=== PATIENT | female | born 1945 | race Caucasian/White ===

== ENCOUNTER 2018-12-01 20:33 | Emergency (ER) | payer MEDICARE ==
--- NOTE | 2018-12-01 22:19 | ED Physician Chart ---
ED Chief Complaint/HPI - Patient Information Date Seen:: 12/01/18 Time Seen:: 21:15 Chief Complaint:: Dog bite in R middle finger. History of Present Illness:: Pt came in by private auto because she sustained dog bite to her right middle finger at 0700 today while she was trying to give medication to her own dog. Pt cleansed her dog bite area immediately with soap and water. Her dog is up to date with rabies and other immunizations. Last tetanus immunization for the patient is unknown. Allergies:: Allergies Allergy/AdvReac Type Severity Reaction Status Date / Time No Known Allergies Allergy Verified 12/01/18 20:56 Vitals:: Vital Signs - 8 hr 12/01/18 20:45 Temp 98.4 F HR 65 RR 18 BP 144/72 O2 Sat % 94 Historian:: Patient Family MD/PCP:: Dr. Snowden LMP:: Postmenopausal Review:: Nurse's Note Reviewed ED Review of Systems - Review of Systems General/Constitutional: No fever, No chills, No weight loss, No weakness, No loss of appetite Skin: No bruising Head: No headache, No light-headedness Eyes: No loss of vision, No pain, No diplopia ENT: No earache, No nasal drainage, No sore throat Neck: No neck pain, No swelling, No thyromegaly, No stiffness, No mass noted Cardio Vascular: No chest pain Pulmonary: No SOB, No cough, No wheezing GI: No vomiting, No pain G/U: No dysuria, No frequency, No hematuria Vascular Tech: No vaginal discharge, No abnormal vaginal bleed Musculoskeletal: No bone or joint pain Psychiatric: No prior psych history Hematopoietic: No bruising, No lymphadenopathy Allergic/Immuno: No urticaria, No angioedema Neurological: No syncope, No focal symptoms, No weakness, No paresthesia, No headache, No dizziness, No confusion ED Past Medical History - Past Medical History Past Medical History: HTN Family History: Heart disease Social History: Non Smoker, No Alcohol, No Drug Use, , Employed, Other ( lives with her sister.) Employment:: senior network security architect. Surgical History: Hysterectomy (about 12 y/a.), other (L eye surgeries with last one about 5 y/a.) Psychiatricy History: None Medication: Reviewed Family Medical History - Family Member Mother History Unknown: Yes ED Physical Exam - Physical Examination General/Constitutional: Awake, Well-developed, well-nourished (female), Alert, No distress, Non-toxic appearing, Ambulatory Other Gen/Cons comments:: Breathes comfortably, speaks clearly, and interacts appropriately. Head: Atraumatic Eyes: Lids, conjuctiva normal, PERRL, EOMI Skin: Well hydrated, No lymphadenopathy ENMT: External ears, nose nl, Nasal exam nl, Oropharynx nl Neck: Nontender, Full ROM w/o pain, No nuchal rigidity, No mass Respiratory: Nl effort/Exclusion, Clear to Auscultation, No Wheeze/Rhonchi/Rales Cardio Vascular: RRR, No murmur, gallop, rubs GI: No tenderness/rebounding/guarding, No organomegaly, Normal BS's, Nondistended, No mass/bruits Other Extremities comments:: R middle finger: There are two superficial bite quesada on lateral distal aspect of middle phalanx with minimal edema. No exudate, erythema, or unusual warmth. Good ROM of all joints. No detectable motor/sensory/vascular deficit. Good distal capillary refill. Neuro/Psych: Alert/oriented (oriented x 3.), Mood normal, Normal gait, No focal deficits ED Septic Shock - . Is Septic Shock (SBP<90, OR Lactate>4 mmol\L) present?: No - <6hrs of presentation: Vital Signs: Vital Signs - 8 hr 12/01/18 20:45 Temp 98.4 F HR 65 RR 18 BP 144/72 O2 Sat % 94 ED Reassessment (Disposition) - Reassessment Reassessment:: 2300 Pt feels much better. Pt requests to go home now. Aftercare instructions have been given. Reassessment Condition:: Improved - Diagnosis Diagnosis:: Superficial bite quesada at middle phalanx of R middle finger. Stable. - Aftercare/Follow up Instructions Aftercare/Follow-Up Instructions:: Refer to Discharge Instructions Notes:: Keep wound clean and dry. Wound care instructions given. May take Motrin 200 mg tab 3 to 4 tabs po q8h prn pain. Animal Bite Report has been completed and filed per nursing staff. F/U with PCP Dr. Snowden in one day for recheck. Return to ER immediately if condition worsens or if any further questions/problems. Medication Prescribed:: Augmentin 875 mg/125 mg tab one tab po q8h for 10 days. D-20 R-0 - Patient Disposition Discharge/Transfer:: Home Time:: 23:05 Condition at Disposition:: Stable, Improved
[2018-12-01] MEDS ORDERED: Amoxicillin/Clavulanat 875/125 Tab PO SCH (22:30)
[2018-12-01] MEDS ORDERED: Triple Antibiotic 0.94 gm Pkt TP STA (22:36)
[2018-12-01] MEDS ORDERED: Amoxicillin/Clavulanat 875/125 Tab ONE (22:43)
[2018-12-01] MEDS ORDERED: Triple Antibiotic 0.94 gm Pkt TP ONE (22:44)
== END 2018-12-01 23:08 | disposition home or self-care (01) ==
LOC: ER 20:33
DX: S60.472A Other superficial bite of right middle finger, initial encounter (principal); I10 Essential (primary) hypertension; W54.0XXA Bitten by dog, initial encounter; Y93.89 Activity, other specified; Y92.89 Other specified places as the place of occurrence of the external cause; Y99.8 Other external cause status
CPT/HCPCS: Z7610